=== PATIENT | female | born 1965 | race Caucasian/White ===

== ENCOUNTER 2023-11-25 11:03 | Emergency (ER) | payer OTHER, SELFPAY ==
[2023-11-25] VITALS (8 sets, daily range): BP systolic 121–152; BP diastolic 75–96; PULSE 79–112; RESP 18; TEMP 36.2; O2SAT 92–96; BMI 36.0
--- NOTE | 2023-11-25 11:29 | ED.GENADULT ---
HPI - General Adult General Chief complaint: Diarrhea Stated complaint: Severe lower abdomen pain-diarrhea Time Seen by Provider: 11/25/23 11:10 History of Present Illness HPI narrative: Patient is a 57-year-old woman comes in today with 36 hours of diarrhea. She has had no blood in her diarrhea. She has only minimal abdominal pain no fevers no chills no night sweats no cough no shortness of breath. She has had no nausea or vomiting. Patient previously was in good health and has had no recent sick contacts. She is noted to be mildly tachycardic with the no fever. Her only abdominal surgery is been C-sections. Related Data Home Medications Medication Instructions Recorded Confirmed clobetasol 0.05 % topical ointment topical BID 11/25/23 levothyroxine 200 mcg tablet 200 mcg PO DAILY 11/25/23 11/25/23 levothyroxine 25 mcg tablet 25 mcg PO QAM 11/25/23 11/25/23 sertraline 100 mg tablet 100 mg PO BID 11/25/23 11/25/23 Allergies Allergy/AdvReac Type Severity Reaction Status Date / Time No Known Drug Allergies Allergy Verified 11/25/23 11:28 Review of Systems Status of ROS: Reports: 10 or more systems reviewed and unremarkable except as noted in History and below [facility] Medical History ADHD ?F90.9 - Attention-deficit hyperactivity disorder, unspecified type (ICD-10) Depression ?F32.A - Depression, unspecified (ICD-10) Hypothyroidism ?E03.9 - Hypothyroidism, unspecified (ICD-10) Social History Smoking Status: Never smoker How often do you have a drink containing alcohol: 4 or more times a week How many standard drinks containing alcohol do you have on a typical day: 1 or 2 How often do you have six or more drinks on one occasion: Never AUDIT-C Alcohol total score: 4 Non-prescribed substance use: denies use Exam Narrative: Exam Narrative: EXAM GENERAL: Patient appears comfortable and well. EYES: No scleral icterus. THYROID: no thyroid nodules or thyromegaly. LYMPH: No supraclavicular or cervical lymphadenopathy. SKIN: Visible skin seen during exam normal or with benign process only. EXT: No dependent lower extremity pedal edema. HEART: Regular rate and rhythm with no murmurs, rubs, or gallops. LUNGS: Clear to auscultation bilaterally with no crackles or wheezes. ABD: Soft with hypoactive but present bowel sounds. Mild tenderness to palpation on the left. No rebound or masses. PSYCH: Good eye contact, speech is not pressured. Const: Vital Signs, click to edit/add: Vital Signs - 24 hr 11/25/23 11:23 11/25/23 12:01 11/25/23 12:02 Temperature 97.1 F L Pulse Rate 85 86 Pulse Rate [Pulse Oximeter] 112 H Respiratory Rate 18 Blood Pressure 137/82 Blood Pressure [Ri ght Upper Arm] 152/96 H Pulse Oximetry 96 94 95 Oxygen Delivery Me thod Room Air 11/25/23 12:15 11/25/23 12:30 11/25/23 13:00 Temperature Pulse Rate 82 81 79 Pulse Rate [Pulse Oximeter] Respiratory Rate Blood Pressure Blood Pressure [Ri ght Upper Arm] Pulse Oximetry 94 94 93 Oxygen Delivery Me thod 11/25/23 13:02 Temperature Pulse Rate 79 Pulse Rate [Pulse Oximeter] Respiratory Rate Blood Pressure 121/75 Blood Pressure [Ri ght Upper Arm] Pulse Oximetry 93 Oxygen Delivery Me thod Course Course ED Course: Patient seen examined. CBC CMP amylase UA normal saline Zofran given. CT of the abdomen pelvis ordered. Vital Signs Vital signs: Initial Vital Signs Temperature 97.1 F L 11/25/23 11:23 Temperature Source Temporal Artery Scan 11/25/23 11:23 Pulse Rate 112 H 11/25/23 11:23 Respiratory Rate 18 11/25/23 11:23 Blood Pressure 152/96 H 11/25/23 11:23 Blood Pressure Mean 114 H 11/25/23 11:23 Pulse Oximetry 96 11/25/23 11:23 Oxygen Delivery Method Room Air 11/25/23 11:23 Vital Signs Temperature 97.1 F L 11/25/23 11:23 Pulse Rate 112 H 11/25/23 11:23 Respiratory Rate 18 11/25/23 11:23 Blood Pressure 152/96 H 11/25/23 11:23 Pulse Oximetry 96 11/25/23 11:23 Oxygen Delivery Method Room Air 11/25/23 11:23 Temperature 97.1 F L 11/25/23 11:23 Pulse Rate 79 11/25/23 13:02 Respiratory Rate 18 11/25/23 11:23 Blood Pressure 121/75 11/25/23 13:02 Pulse Oximetry 93 11/25/23 13:02 Oxygen Delivery Method Room Air 11/25/23 11:23 Medications Administered Medications: Discontinued Medications Generic Name Dose Route Start Last Admin Trade Name Freq PRN Reason Stop Dose Admin Sodium Chloride 1,000 mls @ 1,000 mls/hr 11/25/23 11:29 11/25/23 13:08 0.9 % Sodium Chloride 1000 Ml IV 11/25/23 12:28 Infused .Q1H MALINDA Infusion Ondansetron HCl 4 mg 11/25/23 11:28 11/25/23 11:35 Ondansetron 2 Mg/Ml Inj IVP 11/25/23 11:29 Not Given ONCE STA Medical Decision Making MDM Narrative Medical decision making narrative: Patient is a 57-year-old woman who comes in today with abdominal pain and diarrhea. She does have a leukocytosis on lab work otherwise stable labs. CT of the abdomen pelvis shows evidence of sigmoid diverticulitis. No perforation noted. I did offer her admission she declines. She would like to go home with oral antibiotics pain control and hydrated home. She understands that she needs come back immediately if she is not able to keep up with her hydration or the pain is not under good control. So would recommend a repeat colonoscopy in 6-8 weeks. Differential Diagnosis Differential Diagnosis: Diverticulitis acute abdomen enteritis cholecystitis appendicitis Lab Data Labs: Lab Results 11/25/23 11/25/23 Range/Units 11:40 13:20 WBC 19.00 H (4.50-11.00) K/uL RBC 4.97 (4.00-5.20) m/uL Hgb 14.8 (12.0-16.0) gm/dL Hct 44.3 (33.0-51.0) % MCV 89 (80-100) fL MCH 30 (26-34) pg MCHC 33 (32-36) gm/dL RDW Coeff of Ilsa 12.0 (11.5-15.5) % Plt Count 253 (140-440) K/uL Neut % (Auto) 83.9 H (42.0-72.0) % Lymph % (Auto) 8.9 L (20-44) % Alexander % (Auto) 6.6 (0.0-11.0) % Eos % (Auto) 0.2 (0.0-7.0) % Baso % (Auto) 0.1 (0.0-3.0) % Neut # (Auto) 15.90 H (1.7-7.0) K/uL Lymph # (Auto) 1.70 (0.90-2.90) K/uL Alexander # (Auto) 1.30 H (0.00-0.90) K/UL Eos # (Auto) 0.00 (0.00-0.50) K/uL Baso # (Auto) 0.00 (0.00-0.30) K/uL Abs Immat Gran (auto) 0.10 (0.00-0.30) K/uL Imm/Tot Granulo (auto) 0.3 % Sodium 136 (135-149) mmol/L Potassium 3.3 L (3.6-5.1) mmol/L Chloride 105 (96-114) mmol/L Carbon Dioxide 22 (20-32) mmol/L Anion Gap 9 (7-15) mEq/L BUN 13 (7-30) mg/dL Creatinine 0.7 (0.5-1.5) mg/dL Estimated Creat Clear 87.27 Estimated GFR 101 ml/min Glucose 127 H (60-115) mg/dL Calcium 9.4 (8.4-10.6) mg/dL Total Bilirubin 1.2 (0.1-1.5) mg/dL AST 19 (12-35) U/L ALT 26 (4-35) U/L Alkaline Phosphatase 125 (40-150) U/L Total Protein 7.7 (6.0-8.3) g/dL Albumin 4.2 (3.3-5.0) g/dL Amylase 49 (18-89) U/L Urine Color Yellow (Yellow) Urine Appearance Clear (Clear) Urine pH 5.5 (5.0-8.5) Ur Specific [place] <= 1.005 (1.000-1.030) Urine Protein Trace A (Negative) Urine Glucose (UA) Negative (Negative) Urine Ketones Negative (Negative) Urine Blood 2+ A (Negative) Urine Nitrite Negative (Negative) Urine Bilirubin Negative (Negative) Urine Urobilinogen 0.2 (0.2-1.0) Ur Leukocyte Esterase Negative (Negative) Urine RBC 0-2 (0-2) Urine WBC 0-2 (0-5) Ur Squamous Epith Cells Few (None-Few) Urine Bacteria None (None) Discharge Plan Discharge Clinical Impression: Diverticulitis Patient Disposition: Home, Self-Care Condition: Stable Instructions: Diverticulitis (ED) Additional Instructions: Cipro and Flagyl as directed Tylenol with codeine as directed Hydration Follow-up with your doctor this coming week. Consider colonoscopy in 6-8 weeks. Activity Level: No Restrictions Discharge Diet: Regular Prescriptions: No Action sertraline 100 mg tablet 100 mg PO BID levothyroxine 25 mcg tablet 25 mcg PO QAM levothyroxine 200 mcg tablet 200 mcg PO DAILY clobetasol 0.05 % ointment topical BID Follow Up/Referrals: Iraida Wang MD [Primary Care Provider] - Stand Alone Forms: [facility] Info Instructions
--- NOTE | 2023-11-25 11:32 | CRLHL7_ITS ---
For Patients: As a result of the Century Cures Act, medical imaging exams and procedure reports are released immediately into your electronic medical record. You may view this report before your referring provider. If you have questions, please contact your health care provider. INDICATION: Abdominal pain. TECHNIQUE: CT abdomen and pelvis acquired with 112 cc Isovue 370 IV contrast. COMPARISON: None. FINDINGS: Lower chest: Scattered atelectasis. Liver: Hepatic steatosis. No suspicious masses. Gallbladder and bile ducts: Unremarkable. No stones or inflammation. No biliary dilatation. Pancreas: Unremarkable. No mass or inflammation. Spleen: Unremarkable. Normal in size. No masses. Adrenal glands: Unremarkable. No nodules. Kidneys: Unremarkable. No suspicious masses, stones, or hydronephrosis. GI tract: Acute sigmoid diverticulitis. Additional circumferential wall thickening/perienteric edema of multiple loops of adjacent small bowel in the lower abdomen/upper pelvis. No bowel obstruction normal appendix. Vasculature: Abdominal aorta is normal in caliber. Mesenteric arteries are patent. Lymph nodes: No lymphadenopathy. Peritoneum/Abdominal Wall: Unremarkable. No sign of mass or infiltration. No free air or significant free fluid. Pelvis: Mildly distended bladder with circumferential wall thickening.. Bones: Unremarkable for age. IMPRESSION: Acute uncomplicated sigmoid diverticulitis. No drainable fluid collections. Additional adjacent loops of inflamed small bowel in the lower abdomen/upper pelvis, likely concurrent enteritis. Mildly distended bladder with circumferential wall thickening, possibly reactive in nature. Recommend correlation with urinalysis to exclude superimposed UTI. Please note that all CT scans at this facility use dose modulation, iterative reconstruction, and/or weight-based dosing when appropriate to reduce radiation dose to as low as reasonably achievable. Dictated by Brennan Dowling MD @ 11/25/2023 12:35:35 PM (Electronically Signed)
[2023-11-25] MEDS: 0.9 % SODIUM CHLORIDE 1000 ml 1,000 ML IV (11:35)
[2023-11-25 11:51] LABS: Basophils Percent Auto 0.1 % (0.0-3.0); Eosinophils Percent Auto 0.2 % (0.0-7.0); Hematocrit 44.3 % (33.0-51.0); Hemoglobin* 14.8 gm/dL (12.0-16.0); Immature Granulocytes Pct Auto 0.3 %; Lymphocytes Percent Auto 8.9 % (20-44); Mean Corpuscular HGB Conc 33 gm/dL (32-36); Mean Corpuscular Hemoglobin 30 pg (26-34); Mean Corpuscular Volume 89 fL (80-100); Monocytes Percent Auto 6.6 % (0.0-11.0); Neutrophils Percent Auto 83.9 % (42.0-72.0); Platelet Count* 253 K/uL (140-440); Red Blood Count 4.97 m/uL (4.00-5.20)
[2023-11-25 11:53] LABS: Slide Review Reflex No
[2023-11-25 12:21] LABS: Albumin* 4.2 g/dL (3.3-5.0); Chloride* 105 mmol/L (96-114); Potassium* 3.3 mmol/L (3.6-5.1); Sodium* 136 mmol/L (135-149)
[2023-11-25 12:23] LABS: Amylase* 49 U/L (18-89)
[2023-11-25 12:24] LABS: Alanine Aminotransferase* 26 U/L (4-35); Alkaline Phosphatase* 125 U/L (40-150); Anion Gap 9 mEq/L (7-15); Aspartate Amino Transferase* 19 U/L (12-35); Bilirubin Total* 1.2 mg/dL (0.1-1.5); Blood Urea Nitrogen* 13 mg/dL (7-30); Carbon Dioxide* 22 mmol/L (20-32); Creatinine* 0.7 mg/dL (0.5-1.5); Est. Creatinine Clearance* 87.27; Estimated Glomerular Filt Rate 101 ml/min; Glucose* 127 mg/dL (60-115); Total Protein* 7.7 g/dL (6.0-8.3)
[2023-11-25 12:25] LABS: Calcium* 9.4 mg/dL (8.4-10.6)
[2023-11-25 13:31] LABS: Appearance Urine Clear (Clear); Bilirubin Urine Negative (Negative); Blood Urine 2+ (Negative); Color Urine Yellow (Yellow); Glucose Urine Negative (Negative); Ketones Urine Negative (Negative); Leukocyte Esterase Urine Negative (Negative); Nitrite Urine Negative (Negative); Protein Urine Trace (Negative); Specific Gravity Urine <= 1.005 (1.000-1.030); Urobilinogen Urine 0.2 (0.2-1.0); pH Urine 5.5 (5.0-8.5)
[2023-11-25 13:54] LABS: RBC Urine 0-2 (0-2); WBC Urine 0-2 (0-5)
[2023-11-25 13:55] LABS: Squamous Epithelial Cell Urine Few (None-Few)
== END 2023-11-25 14:17 | disposition home or self-care (01) ==
PROVIDERS: Emergency Provider Internal Medicine; PCP Family Medicine
DX: K57.32 Diverticulitis of large intestine without perforation or abscess without bleeding (principal)
CPT/HCPCS: 36415; 74177; 80053; 81003; 81015; 82150; 85025; 99283; 99284; J7030; Q9967